=== PATIENT | female | born 1935 | race Caucasian/White ===

== ENCOUNTER → 2019-11-16 | Outpatient (CLI) | payer MEDICARE, OTHER ==
--- NOTE | 2019-11-16 11:02 | Diagnostic Imaging Report ---
INDICATION: Screening for osteoporosis COMPARISON: None FINDINGS: The bone density of hips and spine measured. There are no prior studies available for comparison. The T score for the spine is -1.5. This falls within the range of osteopenia. The total T score for the left hip is -2.5 and for the right hip -2.7. The T score for the left femoral neck is also -2.5. All these values indicate osteoporosis. The T score for the right femoral neck is -2.1. This also falls within the range of osteopenia.. AP Spine L1-L4: [BMD (g/cm2): 1.0018] [T-Score: -1.5] [Z-Score: -0.8] [BMD Previous: NA] [BMD % Change: NA] LT Hip Neck: [BMD (g/cm2): 0.687] [T-Score: -2.5] [Z-Score: 0.0] LT Hip Total: [BMD (g/cm2):0.692] [T-Score:-2.5] [Z-Score: 0.0] [BMD Previous: NA] [BMD % Change: NA] RT Hip Neck: [BMD (g/cm2):0.749] [T-Score:-2.1] [Z-Score:0.5] RT Hip Total: [BMD (g/cm2):0.664] [T-score:-2.7] [Z-Score:-0.3] [BMD Previous:NA] [BMD % Change:NA] *Indicates significant change from prior examination based on 95% confidence level. World Health Organization criteria for BMD interpretation classify patients as Normal (T-score at or above -1.0), Osteopenic (T-score between -1.0 and -2.5) or Osteoporotic (T-score at or below -2.5). LIMITATIONS AND MODIFICATION: None. FRACTURE RISK (FRAX SCORE): The ten year probability of (%): Major Osteoporotic Fracture: [17.0] Hip Fracture: [6.5] IMPRESSION: 1. There is osteopenia of the spine and the right femoral neck. 2. However there is osteoporosis of the hips and the left femoral neck. 3. See below National Osteoporosis Foundation guidelines on when to potentially initiate pharmacologic therapy. Based on the National Osteoporosis Foundation Guidelines, pharmacologic treatment should be initiated in any of the following, unless clinical conditions suggest otherwise: * Any patient with prior fragility fracture of the hip or vertebrae. A spine fracture indicates 5X risk for subsequent spine fracture and 2X risk for subsequent hip fracture. * Osteoporosis (T-score <-2.5). * Postmenopausal women and men age 50 and older with low bone mass/osteopenia (T-score between -1.0 and -2.5) by DXA and 10-year major osteoporotic fracture greater than 20% or a 10-year probability of hip fracture greater than 3%. These fracture risks are supplied above in the FRAX score, if applicable. * Clinician judgement and/or patient preferences may indicate treatment for people with 10-year fracture probabilities above or below these levels. Dictated by: Dictated on workstation # [id number]
== END ==
LOC: RAD 09:24
PROVIDERS: ATTEND Family Medicine
DX: Z13.820 Encounter for screening for osteoporosis (principal); M81.0 Age-related osteoporosis without current pathological fracture; M85.89 Other specified disorders of bone density and structure, multiple sites
CPT/HCPCS: 77080

== ENCOUNTER → 2019-11-29 | Outpatient (CLI) | payer MEDICARE, OTHER ==
[2019-11-29 10:16] LABS: ALANINE AMINOTRANSFERASE 14 U/L (0-55); ALBUMIN 4.1 GM/DL (3.2-4.5); ALKALINE PHOSPHATASE 60 U/L (40-136); BILIRUBIN,TOTAL 0.5 MG/DL (0.1-1.0); BUN/CREATININE RATIO 20; CARBON DIOXIDE 24 MMOL/L (21-32); CHLORIDE 108 MMOL/L (98-107); CHOLESTEROL 156 MG/DL (< 200); CREATININE SERUM 0.82 MG/DL (0.60-1.30); GFR ESTIMATED > 60; GLUCOSE 91 MG/DL (70-105); HDL CHOLESTEROL 55 MG/DL (40-60); POTASSIUM 4.1 MMOL/L (3.6-5.0); SODIUM 141 MMOL/L (135-145); TOTAL PROTEIN 7.4 GM/DL (6.4-8.2); TRIGLYCERIDES 78 MG/DL (<150); VLDL CHOLESTEROL 16 MG/DL (5-40)
[2019-11-29 10:18] LABS: BASOPHILS % (AUTO) 1 % (0-10); EOSINOPHILS # (AUTO) 0.1 10^3/uL (0.0-0.3); EOSINOPHILS % (AUTO) 1 % (0-10); HEMATOCRIT 40 % (35-52); HEMOGLOBIN 13.4 G/DL (11.5-16.0); LYMPHOCYTES # (AUTO) 1.2 X 10^3 (1.0-4.0); LYMPHOCYTES % (AUTO) 27 % (12-44); MEAN CORPUSCULAR HEMOGLOBIN 32 PG (25-34); MEAN CORPUSCULAR HGB CONC 33 G/DL (32-36); MEAN CORPUSCULAR VOLUME 96 FL (80-99); MEAN PLATELET VOLUME 9.3 FL (7.4-10.4); MONOCYTES # (AUTO) 0.2 X 10^3 (0.0-1.0); MONOCYTES % (AUTO) 5 % (0-12); NEUTROPHILS # (AUTO) 2.9 X 10^3 (1.8-7.8); NEUTROPHILS % (AUTO) 66 % (42-75); PLATELET COUNT 238 10^3/uL (130-400); WHITE BLOOD COUNT 4.4 10^3/uL (4.3-11.0)
== END ==
LOC: LAB 08:20
PROVIDERS: ATTEND Family Medicine
DX: Z00.00 Encounter for general adult medical examination without abnormal findings (principal); E55.9 Vitamin D deficiency, unspecified; M81.0 Age-related osteoporosis without current pathological fracture
CPT/HCPCS: 36415; 80053; 80061; 82306; 84443; 85025

== ENCOUNTER → 2020-09-11 | Outpatient (CLI) | payer MEDICARE, OTHER | LOC: CARD 11:33 | PROVIDERS: ATTEND Internal Medicine Cardiovascular Disease | DX: I25.5 Ischemic cardiomyopathy (principal) | CPT/HCPCS: 93306 ==

== ENCOUNTER 2020-10-09 18:27 | Emergency (ER) | payer MEDICARE, OTHER ==
[~2020-10-09] VITALS: Ht 162.6 cm; Wt 61.2 kg
--- NOTE | 2020-10-09 19:14 | ED GI ---
General Chief Complaint: Abdominal/GI Problems Stated Complaint: COVID POSITIVE - [facility] Nursing Triage Note: PT AMBULATE TO ROOM 09 WITH C/O NAUSEA. PT STATES THAT SHE CANNOT TAKE HER HOME MEDS BECAUSE OF THE NAUSEA. Sepsis Screen: No Definite Risk Source of Information: Patient Exam Limitations: No Limitations History of Present Illness Date Seen by Provider: Oct 09, 2020 Time Seen by Provider: 18:53 Initial Comments Patient presents ER by private conveyance from home with chief complaint of nausea without vomiting starting today. She started having a cough with some green sputum on Friday of last week, 5 days ago. On Friday, 3 days ago she was diagnosed at her pharmacy while picking up some medicines with COVID-19. She does not have any lung history other than she says decades ago she had a positive TB skin test but she is never had any problems since. She does not use any inhalers or oxygen. She does not feel short of breath just a cough and nausea. She is concerned because she has had difficulty keeping her sotalol and Eliquis down for her A. fib and she knows she does not want to miss any doses of that. She was able to get them both down but did not take her diuretic this morning. She has not been able to eat or drink very well either. Her primary care doctor is Dr. 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 She lives in [place]. Allergies and Home Medications Allergies Coded Allergies: clindamycin (Verified Allergy, Unknown, 10/09/20) Patient Home Medication List Home Medication List Reviewed: Yes Review of Systems Review of Systems Constitutional: No chills, No fever; malaise; No weakness EENTM: No Blurred Vision, No Double Vision Respiratory: Cough; Denies Shortness of Air Cardiovascular: Denies Chest Pain, Denies Edema Gastrointestinal: Denies Constipated, Denies Diarrhea; Nausea, Poor Fluid Intake; Denies Vomiting Genitourinary: Denies Discharge, Denies Drainage Musculoskeletal: No back pain, No gout, No joint pain Skin: No change in color, No dryness Psychiatric/Neurological: Denies Anxiety, Denies Depressed All Other Systems Reviewed Negative Unless Noted: Yes Past Ckdnhqj-Bseqgh-Gypmgl Hx Patient Social History Alcohol Use: Denies Use Smoking Status: Never a Smoker 2nd Hand Smoke Exposure: No Recent Infectious Disease Expo: No Recent Hopitalizations: Yes Seasonal Allergies Seasonal Allergies: Yes Past Medical History Surgeries: Yes (PROLAPSED UTERUS) Adenoidectomy, Hysterectomy, Tonsillectomy, Tubal Ligation Respiratory: Yes (HX OF TB) Cardiac: Yes Atrial Fibrillation, Cardiomyopathy, Coronary Artery Disease, Heart Attack Neurological: No Genitourinary: No Gastrointestinal: No Musculoskeletal: Yes Fractures Endocrine: No HEENT: No Loss of Vision: Denies Hearing Impairment: Denies Cancer: Yes Uterine Did You Recieve Any Treatments: Yes What Type of Treatment Did You: Surgical Intervention Psychosocial: No Integumentary: No Blood Disorders: No Physical Exam Vital Signs Vital Signs - First Documented 10/09/20 18:48 Temp 37.8 Pulse 68 Resp 17 B/P (MAP) 123/65 (84) O2 Delivery Room Air Capillary Refill : Less Than 3 Seconds Height/Weight/BMI Height: '" Weight: lbs. oz. kg; 23.00 BMI Method: General Appearance: WD/WN, no apparent distress HEENT: PERRL/EOMI, pharynx normal Neck: non-tender, full range of motion Respiratory: chest non-tender, lungs clear, normal breath sounds, no respiratory distress, no accessory muscle use Cardiovascular: normal peripheral pulses (70 bpm), no edema Gastrointestinal: normal bowel sounds, non tender, soft Extremities: normal range of motion, non-tender, normal capillary refill Neurologic/Psychiatric: alert, normal mood/affect, oriented x 3 Progress/Results/Core Measures Results/Orders Lab Results Laboratory Tests Test 10/09/20 19:09 Range/Units White Blood Count 6.2 4.3-11.0 10^3/uL Red Blood Count 4.18 3.80-5.11 10^6/uL Hemoglobin 12.6 11.5-16.0 g/dL Hematocrit 38 35-52 % Mean Corpuscular Volume 90 80-99 fL Mean Corpuscular Hemoglobin 30 25-34 pg Mean Corpuscular Hemoglobin Concent 34 32-36 g/dL Red Cell Distribution Width 16.5 H 10.0-14.5 % Platelet Count 296 130-400 10^3/uL Mean Platelet Volume 8.4 L 9.0-12.2 fL Immature Granulocyte % (Auto) 0 % Neutrophils (%) (Auto) 72 42-75 % Lymphocytes (%) (Auto) 18 12-44 % Monocytes (%) (Auto) 10 0-12 % Eosinophils (%) (Auto) 0 0-10 % Basophils (%) (Auto) 0 0-10 % Neutrophils # (Auto) 4.4 1.8-7.8 10^3/uL Lymphocytes # (Auto) 1.1 1.0-4.0 10^3/uL Monocytes # (Auto) 0.6 0.0-1.0 10^3/uL Eosinophils # (Auto) 0.0 0.0-0.3 10^3/uL Basophils # (Auto) 0.0 0.0-0.1 10^3/uL Immature Granulocyte # (Auto) 0.0 0.0-0.1 10^3/uL Sodium Level 128 L 135-145 MMOL/L Potassium Level 4.0 3.6-5.0 MMOL/L Chloride Level 96 L 98-107 MMOL/L Carbon Dioxide Level 20 L 21-32 MMOL/L Anion Gap 12 5-14 MMOL/L Blood Urea Nitrogen 14 7-18 MG/DL Creatinine 0.82 0.60-1.30 MG/DL Estimat Glomerular Filtration Rate > 60 BUN/Creatinine Ratio 17 Glucose Level 97 70-105 MG/DL Calcium Level 8.8 8.5-10.1 MG/DL Corrected Calcium 9.0 8.5-10.1 MG/DL Total Bilirubin 0.8 0.1-1.0 MG/DL Aspartate Amino Transf (AST/SGOT) 26 5-34 U/L Alanine Aminotransferase (ALT/SGPT) 11 0-55 U/L Alkaline Phosphatase 88 40-136 U/L Total Protein 7.7 6.4-8.2 GM/DL Albumin 3.8 3.2-4.5 GM/DL My Orders Orders - CASSY MAGUIRE Cbc With Automated Diff (10/09/20 19:01) Comprehensive Metabolic Panel (10/09/20 19:01) Ondansetron Injection (Zofran Injectio (10/09/20 19:15) Ed Iv/Invasive Line Start (10/09/20 19:02) Ns Iv 500 Ml (Sodium Chloride 0.9%) (10/09/20 19:15) Covid-19 External Lab Results (10/09/20 19:14) Medications Given in ED Current Medications Medications Dose Ordered Sig/Melanie Route Start Time Stop Time Status Last Admin Dose Admin Ondansetron HCl 4 mg ONCE ONCE IVP 10/09/20 19:15 10/09/20 19:16 DC 10/09/20 19:13 4 MG Sodium Chloride 500 ml @ 0 mls/hr Q0M ONCE IV 10/09/20 19:15 10/09/20 19:16 DC 10/09/20 19:13 999 MLS/HR Vital Signs/I&O 10/09/20 18:48 Temp 37.8 Pulse 68 Resp 17 B/P (MAP) 123/65 (84) O2 Delivery Room Air Blood Pressure Mean: 84 Progress Progress Note #1: Time: 19:13 Progress Note Plan to give her Zofran and a gentle 500 cc IV fluid bolus. We will check some basic labs and if everything looks okay we have discussed the combination mono clonal antibody for use under emergency use authorization by the FDA. We discussed the case with pharmacist and agree there is no contraindication to offering it to her given her age she would be in the top criteria for high risk. The patient has been given a handout and is reading it and will make an informed decision about the use of the antibody after we have her nausea treate d. Progress Note #2: Time: 19:49 Progress Note Her nausea is gone. We offered her an observation stay which she declined. She would like to do the monoclonal antibody after discussing risks, benefits and al ternatives. Departure Impression Primary Impression: COVID-19 Additional Impressions: Hyponatremia Nausea alone Disposition: 01 HOME, SELF-CARE Condition: Stable Departure-Patient Inst. Decision time for Depature: 19:49 Referrals: LUCY HERNANDEZ MD (PCP/Family) Primary Care Physician Patient Instructions: COVID-19 Overview, Bamlanivimab and Etesevimab FDA Fact Sheet Add. Discharge Instructions: Expect a phone call from the hospital tomorrow to set up your infusion on Friday. If you do not hear from them by Friday morning then call the hospital at to follow-up. Asked to speak to the pharmacist. Drink plenty of fluids. Zofran 1 tablet every 6 hours under the tongue as necessary for nausea or vomiting. Continue to take your other medications. Return to the ER if you are having new or worrisome symptoms or are unable to control your nausea. All discharge instructions reviewed with patient and/or family. Voiced understanding. Scripts Ondansetron (Ondansetron Odt) 4 Mg Tab.rapdis 4 MG PO Q6H PRN for NAUSEA/VOMITING, #12 TAB 0 Refills Prov: CASSY MAGUIRE 10/09/20 Copy Copies To 1: LUCY HERNANDEZ MD, TITUS J Oct 09, 2020 19:14
[2020-10-09] MEDS ORDERED: NS IV 500 ML 500 ML IV ONE (19:15)
[2020-10-09] MEDS ORDERED: ONDANSETRON 4 MG/2 ML (SDV) Z0FRAN IVP ONE (19:15)
[2020-10-09 19:17] LABS: BASOPHILS % (AUTO) 0 % (0-10); EOSINOPHILS % (AUTO) 0 % (0-10); HEMATOCRIT 38 % (35-52); HEMOGLOBIN 12.6 g/dL (11.5-16.0); LYMPHOCYTES # (AUTO) 1.1 10^3/uL (1.0-4.0); LYMPHOCYTES % (AUTO) 18 % (12-44); MEAN CORPUSCULAR HEMOGLOBIN 30 pg (25-34); MEAN CORPUSCULAR HGB CONC 34 g/dL (32-36); MEAN CORPUSCULAR VOLUME 90 fL (80-99); MEAN PLATELET VOLUME 8.4 fL (9.0-12.2); MONOCYTES # (AUTO) 0.6 10^3/uL (0.0-1.0); MONOCYTES % (AUTO) 10 % (0-12); NEUTROPHILS # (AUTO) 4.4 10^3/uL (1.8-7.8); NEUTROPHILS % (AUTO) 72 % (42-75); PLATELET COUNT 296 10^3/uL (130-400); WHITE BLOOD COUNT 6.2 10^3/uL (4.3-11.0)
[2020-10-09 19:35] LABS: ALANINE AMINOTRANSFERASE 11 U/L (0-55); ALBUMIN 3.8 GM/DL (3.2-4.5); ALKALINE PHOSPHATASE 88 U/L (40-136); BILIRUBIN,TOTAL 0.8 MG/DL (0.1-1.0); BUN/CREATININE RATIO 17; CALCIUM 8.8 MG/DL (8.5-10.1); CARBON DIOXIDE 20 MMOL/L (21-32); CHLORIDE 96 MMOL/L (98-107); CREATININE SERUM 0.82 MG/DL (0.60-1.30); GFR ESTIMATED > 60; GLUCOSE 97 MG/DL (70-105); SODIUM 128 MMOL/L (135-145); TOTAL PROTEIN 7.7 GM/DL (6.4-8.2)
[2020-10-09] MEDS ORDERED: ONDA4TAB11 PO (20:00)
[2020-10-09] MEDS ORDERED: RX-ONDANSETRON 4 MG ODT (ZOFRAN) PPK #4 PO STA (20:01)
[2020-10-09 20:15] VITALS: BP 119/61
== END 2020-10-09 20:15 | disposition home or self-care (01) ==
LOC: EDUNIT# 18:27 → ER 18:32
DX: U07.1 COVID-19 (principal); E87.1 Hypo-osmolality and hyponatremia; R11.0 Nausea; I25.2 Old myocardial infarction; Z88.1 Allergy status to other antibiotic agents
CPT/HCPCS: 36415; 80053; 85025

== ENCOUNTER → 2020-10-11 | Outpatient (CLI) | payer MEDICARE, OTHER ==
[~2020-10-11] VITALS: Ht 162.6 cm; Wt 51.7 kg
[~2020-10-11] MED LIST: CASIRIVIMAB/IMDEVIMAB 2,400 MG/NS 250 ML IV ONE; EPINEPHrine INJECTION 1 MG/ML AMP IM PRN; ONDA4TAB11 PO; diphenhydrAMINE 50 MG/ML INJ (BENADRYL) IV PRN
[2020-10-11 13:45] VITALS: BP 120/51
[2020-10-11 15:17] VITALS: BP 118/60
== END ==
LOC: INFUSION 13:53
PROVIDERS: ATTEND Family Medicine
DX: Z23 Encounter for immunization (principal)

== ENCOUNTER → 2021-07-26 | Outpatient (CLI) | payer MEDICARE, OTHER ==
[~2021-07-26] MED LIST changes: -CASIRIVIMAB/IMDEVIMAB 2,400 MG/NS 250 ML IV ONE; -EPINEPHrine INJECTION 1 MG/ML AMP IM PRN; +REGADENOSON 0.4 MG/5 ML SYR (LEXISCAN) IV ONE; -diphenhydrAMINE 50 MG/ML INJ (BENADRYL) IV PRN
--- NOTE | 2021-07-26 08:02 | Diagnostic Imaging Report ---
Indication: Coronary artery disease PA and lateral views of the chest are obtained. No previous studies available at this time for comparison. Heart size and pulmonary vascularity are within normal limits. There is mild bilateral air trapping indicating background emphysema. No pneumothorax, consolidation or significant pleural fluid is identified. There appear to be old upper right rib fracture deformities. IMPRESSION: Background emphysema without acute abnormality identified. Dictated by: Dictated on workstation # [id number]
[2021-07-26] MEDS: CATHETER FLUSH 10 ML SYR IV PRN ×2 (08:08→09:25)
[2021-07-26 09:09] VITALS: BP 134/85
[2021-07-26 09:23] VITALS: BP 132/67
--- NOTE | 2021-07-27 10:29 | NUCLEAR STRESS TEST ---
REGADENOSON NUCLEAR STRESS Date of procedure: 07/26/2021. Primary care provider: Reyna Hernandez MD Admitting physician: Gumaro Moran Jr., MD. INDICATION: Coronary artery disease. BASELINE ELECTROCARDIOGRAM: Sinus bradycardia at 58 bpm with possible old septal myocardial infarction with inferior and anterolateral ST-T wave changes, consider ischemia. STRESS TEST PROCEDURE: This was initially intended to be a treadmill nuclear stress test but the patient could not walk on the treadmill and this was converted over to a regadenoson nuclear stress test. The patient was administered 0.4 mg of intravenous Regadenoson. The resting heart rate was 58 bpm and the peak heart rate was 99 bpm. The resting blood pressure was 132/67 mmHg and the minimum blood pressure was 113/66 mmHg. This represents a normal heart rate and a normal blood pressure response to Regadenoson. The test was stopped due to the protocol. There was no chest discomfort during the test. There were no arrhythmias during the test. The stress electrocardiogram was indeterminate due to the baseline abnormalities. NUCLEAR PROCEDURE: The patient was administered 7.8 mCi of intravenous technetium 99m Tetrofosmin at rest for the rest images. The patient was subsequently administered 22.9 mCi of intravenous technetium 99m Tetrofosmin at peak stress for the stress images. Following an appropriate wait after each injection, imaging was obtained. The images were subsequently processed and reformatted in the usual views. Gated imaging was obtained. The image quality was adequate with a moderate degree of gastrointestinal and motion artifact. CT attenuation correction was used as a adjunct to standard imaging. Both the corrected and uncorrected images were reviewed for interpretation. NUCLEAR RESULTS: There was a large, severe intensity, fixed mid to distal anterior and apical defect with no evidence of inducible ischemia. There was normal left ventricular chamber size with an end-diastolic volume of 60 mL and an end-systolic volume of 12 mL. There was no evidence of transient ischemic dilatation. The TID ratio was 1.1. There was mid to distal anterior and apical hypokinesis with an overall calculated ejection fraction of 80%. IMPRESSION: 1. Normal heart rate and blood pressure response to regadenoson. 2. There was no chest discomfort or arrhythmias during the test. 3. The stress electrocardiogram was indeterminate due to the baseline abnormalities. 4. There was a large, severe intensity, fixed mid to distal anterior and apical defect with no evidence of inducible ischemia. 5. There was mid to distal anterior and hypokinesis with an overall calculated ejection fraction of 80%. 6. This is an abnormal result representing a moderate risk for possible future coronary ischemic events due to the size of the defect although there is no evidence of ischemia. Certain portions of this document may have been dictated utilizing voice recognition technology. Inherent to this technology, typographical and grammatical errors may exist. As much as I am diligent to identify and correct these mistakes, some errors may remain in the document. GUMARO MORAN JR, MD Jul 27, 2021 10:29
== END ==
LOC: CARD 08:00
PROVIDERS: ATTEND Internal Medicine Cardiovascular Disease
DX: I25.10 Atherosclerotic heart disease of native coronary artery without angina pectoris (principal); J43.9 Emphysema, unspecified
CPT/HCPCS: 71046; 78452; 93017; A9502

== ENCOUNTER → 2021-08-15 | Outpatient (CLI) | payer MEDICARE, OTHER ==
[~2021-08-15] MED LIST changes: -REGADENOSON 0.4 MG/5 ML SYR (LEXISCAN) IV ONE
[2021-08-15 10:44] LABS: POTASSIUM 4.3 MMOL/L (3.6-5.0)
[2021-08-15 10:45] LABS: CALCIUM 9.7 MG/DL (8.5-10.1)
[2021-08-15 10:50] LABS: CREATININE SERUM 0.79 MG/DL (0.60-1.30)
== END ==
LOC: LAB 10:01
PROVIDERS: ATTEND Internal Medicine Cardiovascular Disease
DX: I25.10 Atherosclerotic heart disease of native coronary artery without angina pectoris (principal); I42.9 Cardiomyopathy, unspecified; I48.0 Paroxysmal atrial fibrillation; I35.1 Nonrheumatic aortic (valve) insufficiency; I10 Essential (primary) hypertension; E78.2 Mixed hyperlipidemia
CPT/HCPCS: 36415; 80048

== ENCOUNTER 2021-11-08 09:30 | Day surgery (SDC) | payer MEDICARE, OTHER ==
[~2021-11-08] VITALS: Ht 162.6 cm; Wt 50.6 kg
[2021-11-08] VITALS (9 sets, daily range): BP systolic 83–127; BP diastolic 30–62
[~2021-11-08 09:30] MED LIST changes: +APIX2.5T PO; +ASPIRIN 81 MG CHEW (CHILDREN'S ASA) ONE; +ASPIRIN 81 MG CHEW (CHILDREN'S ASA) PO ONE; +BONE SUPPORT PO; +CATHETER FLUSH 10 ML SYR IV PRN; +HEParin (CATH LAB) 2,000 ML IV ONE; +LIDOCAINE 1% INJ 20 ML VIAL ONE; +NITR0.4T39 SL; +NS IV 1000 ML 1,000 ML IV ONE; +PEDI18TA7 PO; +SOTA80TA62 PO; +SPIR25TA5 PO
[2021-11-08] MEDS ORDERED: VERAPAMIL 5 MG/2 ML (CALAN) VIAL IV ONE (09:37)
[2021-11-08] MEDS ORDERED: fentaNYL INJ 100 MCG/2 ML AMP ONE (09:38)
[2021-11-08] MEDS ORDERED: HEParin 1000 UNIT/ML (10ML VIAL) FOR BOLUS ONE (09:38)
[2021-11-08] MEDS ORDERED: NITRO DRIP 25000 MCG/D5W 250 ML IV ONE (09:38)
[2021-11-08] MEDS ORDERED: MIDAZOLAM 5 MG/5 ML (VERSED) VIAL ONE (09:38)
--- NOTE | 2021-11-08 10:02 | Pre-Op Note & Conscious Sedat ---
Pre-Operative Progress Note H&P Reviewed The H&P was reviewed, patient examined and no changes noted. Date H&P Reviewed: November 08, 2021 Time H&P Reviewed: 09:59 Pre-Op Diagnosis: Coronary artery disease with angina pectoris. She does not have any history of heart failure. She underwent a stress test on 07/26/2021 that was abnormal and considered moderate risk for possible future coronary ischemic events. Given her current clinical status, she is considered moderately frail. Conscious Sedation Pre-Proced ASA Score 2 For ASA 3 and 4: Consider anesthesia and medical clearance. Also, for patients with a history of failed moderate sedation consider anesthesia. Airway Lungs Heart ASA score ASA 1: a normal healthy patient ASA 2: a patient with a mild systemic disease (mid diabetes, controlled hypertension, obesity ASA 3: a patient with a severe systemic disease that limits activity (angina, COPD, prior Myocardial infarction) ASA 4: a patient with an incapacitating disease that is a constant threat to life (CHF, renal failure) ASA 5: a moribund patient not expected to survive 24 hrs. (ruptured aneurysm) ASA 6: a declared brain- patient whose organs are being harvested. For emergent operations, add the letter E after the classification Mallampati Classification Grade 2 Sedation Plan Analgesia, Amnesia, Plan communicated to team members, Discussed options with patient/fam, Discussed risks with patient/fam The patient is an appropriate candidate to undergo the planned procedure, sedation, and anesthesia. The patient immediately re-assessed prior to indication. BHAVIN HIGGINS JR, MD November 08, 2021 10:02
--- NOTE | 2021-11-08 11:12 | Cardiac Cath Report ---
CARDIAC CATHETERIZATION DATE OF PROCEDURE: 11/08/2021 INDICATION: Coronary artery disease with angina pectoris. 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 No stent was placed. At that time there was also thrombus noted in the left circumflex and right coronary arteries and the thought was that she may have had coronary emboli from atrial fibrillation. She has been treated with oral anticoagulation since that time. Then she recently developed recurrent chest discomfort and was seen at an outside emergency room. She had borderline elevated troponin levels but her symptoms had resolved so she was discharged home. Because of the somewhat unstable nature of her symptoms, I recommended further evaluation with a cardiac catheterization. PROCEDURES PERFORMED: 1. Left heart catheterization with hemodynamic measurements. 2. Diagnostic [place] coronary angiography. PROCEDURE DESCRIPTION: After informed consent and in the fasting state, left heart catheterization was performed through the right radial artery utilizing a 6 [place] system by percutaneous approach using ultrasound guidance. A 5 [place] JR 4 catheter and a 5 [place] JL 3.5 catheter were utilized for the diagnostic portion of the procedure. All catheters were exchanged over a guidewire. Following the procedure, a vascular band was applied to the radial artery access site and the sheath was removed with good hemostasis. RESULTS: HEMODYNAMICS: The aortic pressure was 99/52 mmHg. The left ventricular pressure was 100/0 mmHg with a left ventricular end-diastolic pressure of 12 mmHg. There was no significant pressure gradient upon pullback across the aortic valve. CORONARY ANGIOGRAPHY: Left main coronary artery: This had a very upward takeoff but was free of significant disease. Left anterior descending coronary artery: Free of significant disease. Left circumflex coronary artery: Free of significant disease. Right coronary artery: Dominant with a very upward takeoff and a valentino's crook configuration but free of significant disease. IMPRESSION: 1. Mildly elevated left ventricular end-diastolic pressure. 2. Angiographically normal-appearing coronary arteries and a right dominant system. 3. The patient is known to have normal left ventricular systolic function with a calculated ejection fraction of 80% by nuclear stress test that was performed on 07/26/2021. 3. I would question whether or not the patient may have had another small coronary embolic event that was enough to cause her stress test to be abnormal but now she has no evidence of coronary thrombus or coronary atherosclerosis. Certain portions of this document may have been dictated utilizing voice recognition technology. Inherent to this technology, typographical and grammatical errors may exist. As much as I am diligent to identify and correct these mistakes, some errors may remain in the document. BHAVIN HIGGINS JR, MD November 08, 2021 11:12
[2021-11-08] MEDS ORDERED: NS IV 1000 ML 1,000 ML IV SCH (11:15)
== END 2021-11-08 14:15 | disposition home or self-care (01) ==
LOC: CATH 09:30
PROVIDERS: ATTEND Internal Medicine Cardiovascular Disease
DX: I25.119 Atherosclerotic heart disease of native coronary artery with unspecified angina pectoris (principal); I42.9 Cardiomyopathy, unspecified; I48.0 Paroxysmal atrial fibrillation; I35.1 Nonrheumatic aortic (valve) insufficiency; I10 Essential (primary) hypertension; E78.2 Mixed hyperlipidemia; R54 Age-related physical debility; Z87.891 Personal history of nicotine dependence; Z79.01 Long term (current) use of anticoagulants; Z79.899 Other long term (current) drug therapy; Z71.89 Other specified counseling
CPT/HCPCS: 87081; 93458; C1894

== ENCOUNTER 2021-12-20 14:46 | Emergency (ER) | payer MEDICARE, OTHER ==
[~2021-12-20] VITALS: Ht 167.7 cm; Wt 50.3 kg
[~2021-12-20 14:46] MED LIST changes: -ASPIRIN 81 MG CHEW (CHILDREN'S ASA) ONE; -ASPIRIN 81 MG CHEW (CHILDREN'S ASA) PO ONE; -CATHETER FLUSH 10 ML SYR IV PRN; -HEParin (CATH LAB) 2,000 ML IV ONE; -LIDOCAINE 1% INJ 20 ML VIAL ONE; -NS IV 1000 ML 1,000 ML IV ONE
--- NOTE | 2021-12-20 15:26 | Diagnostic Imaging Report ---
PROCEDURE: CT head without contrast. TECHNIQUE: Multiple contiguous axial images were obtained through the brain without the use of intravenous contrast. Auto Exposure Controls were utilized during the CT exam to meet ALARA standards for radiation dose reduction. INDICATION: Head injury and pain. Anticoagulation therapy. COMPARISON: None. FINDINGS: Moderate to advanced generalized parenchymal volume loss and leukoaraiosis. No CT evidence of an acute territorial infarction. Intracranial vascular calcifications. No intracranial hemorrhage, mass effect, hydrocephalus or extra-axial fluid collections. No acute osseous findings. Mucosal thickening and fluid in the ethmoid and sphenoid sinuses. The mastoids are clear. IMPRESSION: No acute intracranial CT findings. Dictated by: Dictated on workstation # [id number]
--- NOTE | 2021-12-20 15:35 | ED Head Injury ---
General Chief Complaint: Head/Cervical Problems Stated Complaint: HIT HEAD Nursing Triage Note: PT AMBULATE TO ROOM 03 WITH C/O HITTING HEAD ON KITCHEN CABINET. PT STATES SHE WAS BENDING OVER AND HIT HER HEAD. PT DENIES N/V AND LOC. PT STATES HER LEFT EYE IS NOT DILATING LIKE HER RIGHT EYE. (SRI RODRIGUEZ) History of Present Illness Date Seen by Provider: Dec 20, 2021 Time Seen by Provider: 14:53 Initial Comments 86-year-old female presents after hitting her head on an open kitchen counter when she bent down and stood back up. She is on Eliquis and is concerned with the bleeding potential. She reports no direct visual changes, no seizure activity, no nausea or vomiting, and no headache. She said no previous head injuries. She did note that her right pupil seemed slightly enlarged compared to the left. She has had cataract surgery in the past. No swelling, ecchymosis or bleeding at site of injury. Occurred: this afternoon Severity: mild Location: frontal Method of Injury: direct blow Loss of Consciousness: no loss of consciousness Associated Systoms: Denies Symptoms (SRI RODRIGUEZ) Allergies and Home Medications Allergies Coded Allergies: amiodarone (Verified Allergy, Unknown, 11/08/21) cefadroxil (Verified Allergy, Unknown, 11/08/21) clindamycin (Verified Allergy, Unknown, 10/09/20) diphenhydramine (Verified Allergy, Unknown, 11/08/21) meperidine (Verified Allergy, Unknown, 11/08/21) morphine (Verified Allergy, Unknown, 11/08/21) Patient Home Medication List Home Medication List Reviewed: Yes (SRI RODRIGUEZ) Apixaban (Eliquis) 2.5 Mg Tablet, 2.5 MG PO 0700,1900, (Reported) Entered as Reported by: ALETHEA ARMANDO on 11/08/21918 Nitroglycerin (Nitroglycerin) 0.4 Mg Tab.subl, 0.4 MG SL UD PRN for CHEST PAIN, (Reported) Entered as Reported by: ALETHEA ARMANDO on 11/08/21918 Pediatric Multivit No.203/Iron (Flintstones with Iron Tab Chew) 18 Mg Iron Tab.chew, 18 MG PO DAILY, (Reported) Entered as Reported by: ALETHEA ARMANDO on 11/08/21918 Sotalol HCl (Sotalol) 80 Mg Tablet, 80 MG PO 0600,1800, (Reported) Entered as Reported by: ALETHEA ARMANDO on 11/08/21918 Spironolactone (Spironolactone) 25 Mg Tablet, 12.5 MG PO DAILY, (Reported) Entered as Reported by: ALETHEA ARMANDO on 11/08/21918 [Bone Support] , 1 CAP PO BID, (Reported) Entered as Reported by: ALETHEA ARMANDO on 11/08/21918 Review of Systems Review of Systems Constitutional: no symptoms reported, see HPI Eyes: No Symptoms Reported, See HPI Ears, Nose, Mouth, Throat: no symptoms reported, see HPI Respiratory: no symptoms reported, see HPI Cardiovascular: no symptoms reported, see HPI Gastrointestinal: no symptoms reported, see HPI Genitourinary: no symptoms reported, see HPI Musculoskeletal: no symptoms reported, see HPI Skin: no symptoms reported, see HPI (SRI RODRIGUEZ) All Other Systems Reviewed Negative Unless Noted: Yes (SRI RODRIGUEZ) Past Xyxddbu-Ukyfqd-Dqkkxe Hx Patient Social History Tobacco Use?: No Smoking Status: Never a Smoker Smokeless Tobacco Frequency: Never a User Use of E-Cig and/or Vaping dev: No Use of E-Cig and/or Vaping [place]: Never a User Substance use?: No Alcohol Use?: No Pt feels they are or have been: No (SRI RODRIGUEZ) Seasonal Allergies Seasonal Allergies: Yes (SRI RODRIGUEZ) Past Medical History Surgeries: Yes (PROLAPSED UTERUS) Adenoidectomy, Hysterectomy, Tonsillectomy, Tubal Ligation Respiratory: Yes (HX OF TB) Cardiac: Yes Atrial Fibrillation, Cardiomyopathy, Coronary Artery Disease, Heart Attack Neurological: No Genitourinary: No Gastrointestinal: No Musculoskeletal: Yes Fractures Endocrine: No HEENT: No Loss of Vision: Denies Hearing Impairment: Denies Cancer: Yes Uterine Did You Recieve Any Treatments: Yes What Type of Treatment Did You: Surgical Intervention Psychosocial: No Integumentary: No Blood Disorders: No (SRI RODRIGUEZ) Family Medical History Reviewed Nursing Family Hx (SRI RODRIGUEZ) Physical Exam Vital Signs Vital Signs - First Documented 12/20/21 12/20/21 14:53 15:46 Temp 35.9 Pulse 60 Resp 14 B/P (MAP) 132/72 (92) Pulse Ox 98 O2 Delivery Room Air (SHY HERNANDEZ MD) Vital Signs Capillary Refill : Less Than 3 Seconds (SRI RODRIGUEZ) Height, Weight, BMI Height: '" Weight: lbs. oz. kg; 17.00 BMI Method: General Appearance: WD/WN, no apparent distress HEENT: PERRL/EOMI, normal ENT inspection, TMs normal, pharynx normal, other (Tenderness to palpation right frontal. No swelling or ecchymosis) Neck: non-tender, full range of motion, supple, normal inspection Cardiovascular: normal peripheral pulses, regular rate, rhythm Respiratory: chest non-tender, lungs clear, normal breath sounds Gastrointestinal: normal bowel sounds, non tender, soft Extremities: normal range of motion, non-tender, normal inspection, normal capillary refill, other (Steady gait) Psychiatric: alert, oriented x 3 Crainal Nerves: normal hearing, normal speech, PERRL Coordination/Gait: normal finger to nose, normal gait Skin: normal color, warm/dry (SRI RODRIGUEZ) Progress/Results/Core Measures Results/Orders Vital Signs/I&O 12/20/21 12/20/21 14:53 15:46 Temp 35.9 Pulse 60 67 Resp 14 16 B/P (MAP) 132/72 (92) 127/66 Pulse Ox 98 O2 Delivery Room Air Room Air (SHY HERNANDEZ MD) Blood Pressure Mean: 92 Diagnostic Imaging Diagonstic Imaging: CT Plain Films/CT/US/NM/MRI: head Comments NAME: JANIS RIVERA [facility] REC#: [id number] PT STATUS: REG ER : 1935 PHYSICIAN: SRI RODRIGUEZ ADMIT DATE: 12/20/21/ER Draft Date of Exam:12/20/21 CT HEAD WO PROCEDURE: CT head without contrast. TECHNIQUE: Multiple contiguous axial images were obtained through the brain without the use of intravenous contrast. Auto Exposure Controls were utilized during the CT exam to meet ALARA standards for radiation dose reduction. INDICATION: Head injury and pain. Anticoagulation therapy. COMPARISON: None. FINDINGS: Moderate to advanced generalized parenchymal volume loss and leukoaraiosis. No CT evidence of an acute territorial infarction. Intracranial vascular calcifications. No intracranial hemorrhage, mass effect, hydrocephalus or extra-axial fluid collections. No acute osseous findings. Mucosal thickening and fluid in the ethmoid and sphenoid sinuses. The mastoids are clear. IMPRESSION: No acute intracranial CT findings. Dictated on workstation # [id number] Dict: 12/20/21 1521 Trans: 12/20/21 1525 [id number] Interpreted by: BO HASTINGS MD Electronically signed by: (SRI RODRIGUEZ) Departure Impression Primary Impression: Head contusion Qualified Codes: S00.03XA - Contusion of scalp, initial encounter Disposition: HOME, SELF-CARE Condition: Improved Departure-Patient Inst. Decision time for Depature: 15:25 (SRI RODRIGUEZ) Referrals: LUCY MORRISON MD (PCP/Family) Primary Care Physician Patient Instructions: Minor Head Injury (DC) Add. Discharge Instructions: Continue to monitor symptoms as needed. Follow-up with your primary care provider if symptoms are not improving or worsen. No aggressive physical activity for the next week. Keep your feet on the ground at all times. Return to the emergency department for new, urgent healthcare needs. All discharge instructions reviewed with patient and/or family. Voiced understanding. ATTENDING PHYSICIAN NOTE: I was physically present as attending physician in the emergency department during the care of this patient, but I was not directly involved in the decision making or delivery of care for this patient. (SHY HERNANDEZ MD) Copy Copies To 1: LUCY MORRISON MD, AMY ARNP Dec 20, 2021 15:35 SHY HERNANDEZ MD Dec 20, 2021 19:08
[2021-12-20 15:46] VITALS: BP 127/66
== END 2021-12-20 15:46 | disposition home or self-care (01) ==
LOC: EDUNIT# 14:46 → ER 14:47
DX: S00.03XA Contusion of scalp, initial encounter (principal); Z28.310 Unvaccinated for COVID-19; W22.8XXA Striking against or struck by other objects, initial encounter; Y92.000 Kitchen of unspecified non-institutional (private) residence as the place of occurrence of the external cause
CPT/HCPCS: 70450

== ENCOUNTER → 2021-12-27 | Outpatient (CLI) | payer MEDICARE, OTHER ==
--- NOTE | 2021-12-27 14:54 | Diagnostic Imaging Report ---
PROCEDURE: MR imaging of the brain without contrast. TECHNIQUE: Multiplanar, multisequence MR imaging of the brain was performed without contrast. INDICATION: Recent head injury and unsteadiness. COMPARISON: No prior MRI brain studies are available for comparison. FINDINGS: Ventricles and sulci are prominent, consistent with the patient's age. Moderate periventricular and subcortical white matter changes are noted, consistent with chronic microvascular ischemia. No acute intra-axial or extra-axial hemorrhage is detected. There are punctate areas of diffusion restriction in the right occipital lobe, suggestive of microinfarcts. No other areas of diffusion restriction are identified. The normal expected flow-voids within the carotid siphons are seen. The corpus callosum is unremarkable. The sella and parasellar structures are unremarkable. IMPRESSION: Cerebral atrophy with extensive changes of chronic microvascular ischemia. There are punctate regions of diffusion restriction in the right occipital lobe, suggestive of acute/subacute microinfarcts. No large territory infarct or evidence of acute intracranial hemorrhage is detected. Dictated by: Dictated on workstation # [id number]
--- NOTE | 2021-12-27 16:42 | Diagnostic Imaging Report ---
PROCEDURE: US carotid duplex, bilateral. TECHNIQUE: Multiple real-time grayscale images were obtained over the carotid arteries in various projections, bilaterally. Additional spectral analysis and color Doppler duplex images were also obtained. INDICATION: Transient ischemic attack. FINDINGS: Mild plaquing is noted in both carotid systems. Velocities are normal bilaterally. No velocity elevation or stenosis is detected. Both vertebral arteries show antegrade flow. IMPRESSION: No evidence of a hemodynamically significant stenosis. Parameters based on the consensus panel Galindo-Scale and Doppler ultrasound criteria published April 2003, Radiology, Volume 229. DOPPLER (peak systolic velocity M/S Right Left CCA 0.65 0.62 ICA Proximal 0.59 0.44 ICA Mid 0.77 1.13 ICA Distal 0.80 0.94 RATIO 1.23 1.58 ECA 0.55 0.45 VERT 0.33 0.44 Dictated by: Dictated on workstation # [id number]
== END ==
LOC: RAD 12:05
DX: G45.9 Transient cerebral ischemic attack, unspecified (principal); G31.9 Degenerative disease of nervous system, unspecified
CPT/HCPCS: 70551; 93880

== ENCOUNTER → 2021-12-31 | Outpatient (CLI) | payer MEDICARE, OTHER | LOC: CARD 14:30 | PROVIDERS: ATTEND Internal Medicine Cardiovascular Disease | DX: I08.3 Combined rheumatic disorders of mitral, aortic and tricuspid valves (principal); I48.0 Paroxysmal atrial fibrillation | CPT/HCPCS: 93306 ==

== ENCOUNTER 2022-01-12 23:06 | Observation (INO) | payer MEDICARE, OTHER ==
[~2022-01-12] VITALS: Ht 165.1 cm; Wt 51.2 kg
--- NOTE | 2022-01-12 23:14 | ED Chest Pain ---
General Chief Complaint: Chest Pain Stated Complaint: CP,UNSTEADY WALKING,TOOK NITRO Source: patient History of Present Illness Date Seen by Provider: Jan 12, 2022 Time Seen by Provider: 23:12 Initial Comments PT ARRIVES VIA POV FROM HOME C/O CHEST PAIN THAT BEGAN AROUND 0 TONIGHT PAIN IS UNDER LEFT BREAST, OCCASIONALLY MOVES ACROSS HER CHEST STATES PAIN WAS AN "8-9" BUT "NOW IT'S JUST A LITTLE TUG NOW AND THEN IF I MOVE JUST RIGHT" --IS NOT HAVING PAIN NOW STATES SHE WAS DIZZY, BUT NOT NOW NO PALPITATIONS NO SYNCOPE NO SHORTNESS OF BREATH NO NAUSEA/VOMITING NO SWELLING IN LEGS/FEET OR PAIN IN CALVES NO FEVER OR RECENT ILLNESS PT IS CURRENTLY ON ELIQUIS AND SOTALOL FOR ATRIAL FIBRILLATION WAS TAKING ALDACTONE FOR HTN, BUT SHE STOPPED TAKING IT ABOUT 2 WEEKS AGO--STATES "I WAS STUMBLING ALL OVER" --THAT HAS IMPROVED SINCE STOPPING THE MEDICATION, AND HAS SEEN HER PRINCIPAL TECHNICAL WRITER IN THE LAST 2 WEEKS AND HE AGREED WITH HOLDING THE MEDICATION FOR NOW. PT STATES SHE HAD A PRIOR ME IN 1999--NO CARDIAC CATH OR STENTS. STATES "THEY JUST GOT THE CLOT OUT" PT HAD A NORMAL CARDIAC CATH BY DR. HIGGINS 11/08/21 PCP: DR. MORRISON PRINCIPAL TECHNICAL WRITER: DR. HIGGINS. Allergies and Home Medications Allergies Coded Allergies: amiodarone (Verified Allergy, Unknown, 11/08/21) cefadroxil (Verified Allergy, Unknown, 11/08/21) clindamycin (Verified Allergy, Unknown, 10/09/20) diphenhydramine (Verified Allergy, Unknown, 11/08/21) meperidine (Verified Allergy, Unknown, 11/08/21) morphine (Verified Allergy, Unknown, 11/08/21) Patient Home Medication List Apixaban (Eliquis) 2.5 Mg Tablet, 2.5 MG PO 0700,1900, (Reported) Entered as Reported by: ALETHEA ARMANDO on 11/08/21918 Last Action: Last Taken Edited Nitroglycerin (Nitroglycerin) 0.4 Mg Tab.subl, 0.4 MG SL UD PRN for CHEST PAIN, (Reported) Entered as Reported by: ALETHEA ARMANDO on 11/08/21918 Last Action: Last Taken Edited Pediatric Multivit No.203/Iron (Flintstones with Iron Tab Chew) 18 Mg Iron Tab.chew, 18 MG PO DAILY, (Reported) Entered as Reported by: ALETHEA ARMANDO on 11/08/21918 Last Action: Last Taken Edited Sotalol HCl (Sotalol) 80 Mg Tablet, 80 MG PO 0600,1800, (Reported) Entered as Reported by: ALETHEA ARMANDO on 11/08/21918 Last Action: Last Taken Edited [Bone Support] , 1 CAP PO BID, (Reported) Entered as Reported by: ALETHEA ARMANDO on 11/08/21918 Last Action: Last Taken Edited Discontinued Medications Spironolactone (Spironolactone) 25 Mg Tablet, 12.5 MG PO DAILY, (Reported) Discontinued Reason: No Longer Taking Entered as Reported by: ALETHEA ARMANDO on 11/08/21918 Last Action: Discontinued Review of Systems Review of Systems Constitutional: see HPI, dizziness, weakness EENTM: No Symptoms Reported Respiratory: No Symptoms Reported; Denies Cough, Denies Orthopnea, Denies Shortness of Air Cardiovascular: See HPI, Chest Pain; Denies Edema, Denies Irregular Heart Rate; Lightheadedness; Denies Palpitations, Denies Syncope Gastrointestinal: No Symptoms Reported; Denies Abdominal Pain, Denies Nausea, Denies Vomiting Genitourinary: No Symptoms Reported Musculoskeletal: no symptoms reported Skin: no symptoms reported Psychiatric/Neurological: No Symptoms Reported Endocrine: No Symptoms Reported Hematologic/Lymphatic: No Symptoms Reported Past Gmuyhmm-Kuosml-Plfkok Hx Patient Social History Tobacco Use?: No Substance use?: No Alcohol Use?: No Seasonal Allergies Seasonal Allergies: Yes Past Medical History Surgeries: Yes (PROLAPSED UTERUS; CARDIAC CATH 11/08/21-NORMAL: CATARACTS) Adenoidectomy, Cardiac, Eye Surgery, Hysterectomy, Tonsillectomy, Tubal Ligation Respiratory: Yes (HX OF TB) Tuberculosis Cardiac: Yes Atrial Fibrillation, Cardiomyopathy, Coronary Artery Disease, Heart Attack, Hypertension Neurological: 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 HIGGINS: IMPRESSION: 1. Mildly elevated left ventricular end-diastolic pressure. 2. Angiographically normal-appearing coronary arteries and a right dominant system. 3. The patient is known to have normal left ventricular systolic function with a calculated ejection fraction of 80% by nuclear stress test that was performed on 07/26/2021. 3. I would question whether or not the patient may have had another small coronary embolic event that was enough to cause her stress test to be abnormal but now she has no evidence of coronary thrombus or coronary atherosclerosis. Physical Exam Vital Signs Vital Signs - First Documented 01/12/22 23:10 Temp 36.4 Pulse 49 Resp 16 B/P (MAP) 128/64 (85) Pulse Ox 95 O2 Delivery Room Air Capillary Refill : Height, Weight, BMI Height: '" Weight: lbs. oz. kg; 17.00 BMI Method: General Appearance: No Apparent Distress, WD/WN, Thin Neck: Full Range of Motion, Normal Inspection, Non Tender, Supple; No Carotid Bruit, No JVD Respiratory: Chest Non Tender, Normal Breath Sounds, No Accessory Muscle Use, No Respiratory Distress Cardiovascular: Regular Rate, Rhythm, No Edema, No JVD, No Murmur, Normal Peripheral Pulses Gastrointestinal: Normal Bowel Sounds, No Organomegaly, No Pulsatile Mass, Non Tender, Soft Extremity: Normal Capillary Refill, Normal Inspection, Normal Range of Motion, Non Tender, No Calf Tenderness, No Pedal Edema Neurologic/Psychiatric: Alert, Oriented x3, No Motor/Sensory Deficits, Normal M ood/Affect, thermometer tester II-XII Norm as Tested Skin: Normal Color, Warm/Dry; No Rash Progress/Results/Core Measures Results/Orders Lab Results Laboratory Tests Test 01/12/22 23:15 Range/Units White Blood Count 6.7 4.3-11.0 10^3/uL Red Blood Count 4.12 3.80-5.11 10^6/uL Hemoglobin 12.9 11.5-16.0 g/dL Hematocrit 39 35-52 % Mean Corpuscular Volume 95 80-99 fL Mean Corpuscular Hemoglobin 31 25-34 pg Mean Corpuscular Hemoglobin Concent 33 32-36 g/dL Red Cell Distribution Width 14.0 10.0-14.5 % Platelet Count 208 130-400 10^3/uL Mean Platelet Volume 8.8 L 9.0-12.2 fL Immature Granulocyte % (Auto) 0 % Neutrophils (%) (Auto) 56 42-75 % Lymphocytes (%) (Auto) 30 12-44 % Monocytes (%) (Auto) 11 0-12 % Eosinophils (%) (Auto) 3 0-10 % Basophils (%) (Auto) 1 0-10 % Neutrophils # (Auto) 3.7 1.8-7.8 10^3/uL Lymphocytes # (Auto) 2.0 1.0-4.0 10^3/uL Monocytes # (Auto) 0.7 0.0-1.0 10^3/uL Eosinophils # (Auto) 0.2 0.0-0.3 10^3/uL Basophils # (Auto) 0.1 0.0-0.1 10^3/uL Immature Granulocyte # (Auto) 0.0 0.0-0.1 10^3/uL My Orders Orders - JULIÁN HARPER DO Cbc With Automated Diff (01/12/22 23:12) Magnesium (01/12/22 23:12) Chest 1 View, Ap/Pa Only (01/12/22 23:12) Ekg Tracing (01/12/22 23:12) Comprehensive Metabolic Panel (01/12/22 23:12) Myoglobin Serum (01/12/22 23:12) Protime With Inr (01/12/22 23:12) Partial Thromboplastin Time (01/12/22 23:12) O2 (01/12/22 23:12) Monitor-Rhythm Ecg Trace Only (01/12/22 23:12) Ed Iv/Invasive Line Start (01/12/22 23:12) Creatine Kinase (01/12/22 23:12) Creatine Kinase Mb (01/12/22 23:12) Lipase (01/12/22 23:12) Amylase (01/12/22 23:12) Bnp [place] (01/12/22 23:12) Troponin I [place] (01/12/22 23:12) Aspirin Chewable Tablet (Baby Aspirin Ch (01/12/22 23:15) Ekg Tracing (01/12/22 23:12) Medications Given in ED Current Medications Medications Dose Ordered Sig/Melanie Route Start Time Stop Time Status Last Admin Dose Admin Aspirin 324 mg ONCE ONCE PO 01/12/22 23:15 01/12/22 23:16 DC 01/12/22 23:25 324 MG Vital Signs/I&O 01/12/22 01/12/22 23:10 23:15 Temp 36.4 Pulse 49 Resp 16 B/P (MAP) 128/64 (85) Pulse Ox 95 95 O2 Delivery Room Air Room Air Progress Progress Note : Progress Note GIVEN ASPIRIN NTG HELD PT IS NOT CURRENTLY HAVING ANY PAIN PT STATES HER HEART RATE IS ALWAYS LOW--USUALLY AROUND 50 Initial ECG Impression Date: Jan 12, 2022 Initial ECG Impression Time: 23:15 Initial ECG Rate: 46 Initial ECG Rhythm: S.Rah Initial ECG Impression: Nonspecific Changes (T WAVE INVERSION/ST DEPRESSION ANTERIOR/LATERALLY) Initial ECG Comparisson: No Previous ECG Available Diagnostic Imaging Comments CXR-- Reviewed: Reviewed by Me Departure Departure-Patient Inst. Referrals: LUCY MORRISON MD (PCP/Family) Primary Care Physician JULIÁN HARPER DO Jan 12, 2022 23:14
[2022-01-12] MEDS ORDERED: ASPIRIN 81 MG CHEW (CHILDREN'S ASA) PO ONE (23:15)
[2022-01-12 23:21] LABS: BASOPHILS # (AUTO) 0.1 10^3/uL (0.0-0.1); BASOPHILS % (AUTO) 1 % (0-10); EOSINOPHILS # (AUTO) 0.2 10^3/uL (0.0-0.3); EOSINOPHILS % (AUTO) 3 % (0-10); HEMATOCRIT 39 % (35-52); HEMOGLOBIN 12.9 g/dL (11.5-16.0); LYMPHOCYTES % (AUTO) 30 % (12-44); MEAN CORPUSCULAR HEMOGLOBIN 31 pg (25-34); MEAN CORPUSCULAR HGB CONC 33 g/dL (32-36); MEAN CORPUSCULAR VOLUME 95 fL (80-99); MEAN PLATELET VOLUME 8.8 fL (9.0-12.2); MONOCYTES # (AUTO) 0.7 10^3/uL (0.0-1.0); MONOCYTES % (AUTO) 11 % (0-12); NEUTROPHILS # (AUTO) 3.7 10^3/uL (1.8-7.8); NEUTROPHILS % (AUTO) 56 % (42-75); PLATELET COUNT 208 10^3/uL (130-400); WHITE BLOOD COUNT 6.7 10^3/uL (4.3-11.0)
[2022-01-12 23:33] LABS: INR 1.1 (0.8-1.4); PROTHROMBIN TIME PATIENT 14.6 SEC (12.2-14.7)
[2022-01-12 23:40] LABS: ALBUMIN 3.9 GM/DL (3.2-4.5); BILIRUBIN,TOTAL 0.4 MG/DL (0.1-1.0); CALCIUM 9.4 MG/DL (8.5-10.1); CREATININE SERUM 0.8 MG/DL (0.60-1.30); MAGNESIUM 2.3 MG/DL (1.6-2.4); POTASSIUM 4.3 MMOL/L (3.6-5.0); TOTAL PROTEIN 7.6 GM/DL (6.4-8.2)
[2022-01-12 23:47] LABS: CREATINE KINASE MB 1.6 NG/ML (<6.6)
[2022-01-13] VITALS (11 sets, daily range): BP systolic 93–139; BP diastolic 43–78
[2022-01-13] MEDS ORDERED: ONDANSETRON 4 MG/2 ML (SDV) Z0FRAN IVP PRN (01:45)
[2022-01-13] MEDS ORDERED: NITROGLYCERIN 0.4 MG SL TABS BTL 25'S SL PRN (01:45)
[2022-01-13] MEDS ORDERED: fentaNYL INJ 100 MCG/2 ML AMP IV PRN (01:45)
--- NOTE | 2022-01-13 02:13 | Tele-ICU Consult ---
History of Present Illness History of Present Illness Date Seen by Provider: Jan 13, 2022 Time Seen by Provider: 02:07 Date of Admission 86 yo F came to ED for left chest pain, now improved, no accompanying SOB N, V D, no calf pain or swelling. Hx of chronic a fib and taking Eliquis and Sotolol Hx of previous CT in 1999 Went to [facility], pt says was normal PMH HTN, CMP, EKG shows sinus bradycardia Troponin, BNP normal Allergies and Home Medications Allergies Coded Allergies: amiodarone (Verified Allergy, Unknown, 11/08/21) cefadroxil (Verified Allergy, Unknown, 11/08/21) clindamycin (Verified Allergy, Unknown, 10/09/20) diphenhydramine (Verified Allergy, Unknown, 11/08/21) meperidine (Verified Allergy, Unknown, 11/08/21) morphine (Verified Allergy, Unknown, 11/08/21) Home Medications Apixaban 2.5 Mg Tablet, 2.5 MG PO 0700,1900, (Reported) Nitroglycerin 0.4 Mg Tab.subl, 0.4 MG SL UD PRN for CHEST PAIN, (Reported) Pediatric Multivit No.203/Iron 18 Mg Iron Tab.chew, 18 MG PO DAILY, (Reported) Sotalol HCl 80 Mg Tablet, 80 MG PO 0600,1800, (Reported) [Bone Support] , 1 CAP PO BID, (Reported) Past Medical/Social/Family Hx Patient Social History Tobacco Use?: No Smoking Status: Never a Smoker Use of E-Cig and/or Vaping dev: No Substance use?: No Alcohol Use?: No Pt stated abuse/neglect: No Immunizations Up To Date Tetanus Booster (TDap): Unknown Hepatitis A: No Hepatitis B: No TB Skin Test: None Current Status status: No status: No Advance Directives: Yes Advance Directive Location: Home Communicates: Verbally Primary Language: Polish Preferred Spoken Language: Polish Is interpretation needed?: No Sensory deficits: Vision impairment Implanted or Applied Medical D: None Family Medical History Family Hx: -CARDIAC CATH 11/08/[address] HIGGINS: IMPRESSION: 1. Mildly elevated left ventricular end-diastolic pressure. 2. Angiographically normal-appearing coronary arteries and a right dominant system. 3. The patient is known to have normal left ventricular systolic function with a calculated ejection fraction of 80% by nuclear stress test that was performed on 07/26/2021. 3. I would question whether or not the patient may have had another small coronary embolic event that was enough to cause her stress test to be abnormal but now she has no evidence of coronary thrombus or coronary atherosclerosis. Review of Systems Constitutional: see HPI EENTM: see HPI Respiratory: see HPI Cardiovascular: see HPI Gastrointestinal: see HPI Genitourinary: see HPI Musculoskeletal: see HPI Skin: see HPI Psychiatric/Neurological: See HPI Focused Exam Height, Weight, BMI Height: '" Weight: lbs. oz. kg; 18.78 BMI Method: Exam Exam Patient acknowledged, consented, and participated in this virtual visit which was conducted using real time audio/video Vital Signs Date Time Temp Pulse Resp B/P (MAP) Pulse Ox O2 Delivery O2 Flow Rate FiO2 01/13/22 01:30 Room Air 01/13/22 01:30 36.2 46 18 114/59 (77) 95 Room Air 01/13/22 00:40 36.6 50 14 99/80 96 Room Air 01/12/22 23:15 95 Room Air 01/12/22 23:10 36.4 49 16 128/64 (85) 95 Room Air Height & Weight Height: '" Weight: lbs. oz. kg; 18.78 BMI Method: General Appearance: No Apparent Distress, WD/WN, Thin Neck: Full Range of Motion, Normal Inspection, Non Tender, Supple; No Carotid Bruit, No JVD Respiratory: Chest Non Tender, Normal Breath Sounds, No Accessory Muscle Use, No Respiratory Distress Cardiovascular: Regular Rate, Rhythm, No Edema, No Gallop, No JVD, No Murmur, Normal Peripheral Pulses Capillary Refill: Less Than 3 Seconds Extremity: Normal Capillary Refill, Normal Inspection, Normal Range of Motion, Non Tender, No Calf Tenderness, No Pedal Edema Neurologic/Psychiatric: Alert, Oriented x3, No Motor/Sensory Deficits, Normal Mood/Affect, 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
[2022-01-13 04:14] LABS: BASOPHILS % (AUTO) 1 % (0-10); EOSINOPHILS # (AUTO) 0.1 10^3/uL (0.0-0.3); EOSINOPHILS % (AUTO) 3 % (0-10); HEMATOCRIT 38 % (35-52); HEMOGLOBIN 12.3 g/dL (11.5-16.0); LYMPHOCYTES # (AUTO) 1.8 10^3/uL (1.0-4.0); LYMPHOCYTES % (AUTO) 35 % (12-44); MEAN CORPUSCULAR HEMOGLOBIN 31 pg (25-34); MEAN CORPUSCULAR HGB CONC 33 g/dL (32-36); MEAN CORPUSCULAR VOLUME 95 fL (80-99); MEAN PLATELET VOLUME 9.1 fL (9.0-12.2); MONOCYTES # (AUTO) 0.5 10^3/uL (0.0-1.0); MONOCYTES % (AUTO) 9 % (0-12); NEUTROPHILS # (AUTO) 2.6 10^3/uL (1.8-7.8); NEUTROPHILS % (AUTO) 52 % (42-75); PLATELET COUNT 189 10^3/uL (130-400)
[2022-01-13 04:41] LABS: ALBUMIN 3.7 GM/DL (3.2-4.5); BILIRUBIN,TOTAL 0.4 MG/DL (0.1-1.0); CALCIUM 9.4 MG/DL (8.5-10.1); CREATININE SERUM 0.77 MG/DL (0.60-1.30); MAGNESIUM 2.2 MG/DL (1.6-2.4); PHOSPHORUS 4.3 MG/DL (2.3-4.7); POTASSIUM 4.2 MMOL/L (3.6-5.0); TOTAL PROTEIN 7.1 GM/DL (6.4-8.2)
[2022-01-13] MEDS ORDERED: CATHETER FLUSH 10 ML SYR IVP SCH (06:00)
--- NOTE | 2022-01-13 06:33 | Diagnostic Imaging Report ---
EXAMINATION: Chest 1 view HISTORY: Chest pain COMPARISON: 07/26/2021 FINDINGS: Heart size and pulmonary vasculature are normal. Mild interstitial opacities within the lungs. No focal consolidation, pleural effusion, or pneumothorax. Chronic right rib deformities. IMPRESSION: 1. Mild coarse diffuse interstitial opacities which may represent background chronic lung disease although superimposed edema or infection within the differential. Dictated by: Dictated on workstation # [id number]
--- NOTE | 2022-01-13 08:12 | Tele-ICU Progress Note ---
Progress Note video rounds completd 86 y/o female admitted with CP HAd prior cath CARDIAC CATH 11/08/[address] HIGGINS: IMPRESSION: 1. Mildly elevated left ventricular end-diastolic pressure. 2. Angiographically normal-appearing coronary arteries and a right dominant system. 3. The patient is known to have normal left ventricular systolic function with a calculated ejection fraction of 80% by nuclear stress test that was performed on 07/26/2021 Tropinins negative PE: resting comfortably in bed HR 46 with T wave inversions on monitor awaiting cardiology Focused Exam Height, Weight, BMI Height: '" Weight: lbs. oz. kg; 18.78 BMI Method: Labs Laboratory Tests 01/12/22 23:15 01/13/22 03:46 Results Results/Procedures Labs Laboratory Tests 01/12/22 23:15 01/13/22 03:46 Patient resulted labs reviewed. Results Labs Labs Laboratory Tests 01/12/22 23:15: White Blood Count 6.7, Red Blood Count 4.12, Hemoglobin 12.9, Hematocrit 39, Mean Corpuscular Volume 95, Mean Corpuscular Hemoglobin 31, Mean Corpuscular Hemoglobin Concent 33, Red Cell Distribution Width 14.0, Platelet Count 208, Mean Platelet Volume 8.8L, Immature Granulocyte % (Auto) 0, Neutrophils (%) (Auto) 56, Lymphocytes (%) (Auto) 30, Monocytes (%) (Auto) 11, Eosinophils (%) (Auto) 3, Basophils (%) (Auto) 1, Neutrophils # (Auto) 3.7, Lymphocytes # (Auto) 2.0, Monocytes # (Auto) 0.7, Eosinophils # (Auto) 0.2, Basophils # (Auto) 0.1, Immature Granulocyte # (Auto) 0.0, Prothrombin Time 14.6, INR Comment 1.1, Activated Partial Thromboplast Time 31, Sodium Level 140, Potassium Level 4.3, Chloride Level 104, Carbon Dioxide Level 25, Anion Gap 11, Blood Urea Nitrogen 23H, Creatinine 0.80, Estimat Glomerular Filtration Rate 72, BUN/Creatinine Ratio 29, Glucose Level 92, Calcium Level 9.4, Corrected Calcium 9.5, Magnesium Level 2.3, Total Bilirubin 0.4, Aspartate Amino Transf (AST/SGOT) 21, Alanine Aminotransferase (ALT/SGPT) 15, Alkaline Phosphatase 61, Total Creatine Kinase 67, Creatine Kinase MB 1.6, Myoglobin 31.9, Troponin I < 0.028, B-Type Natriuretic Peptide 295.1H, Total Protein 7.6, Albumin 3.9, Amylase Level 40, Lipase 22 01/13/22 03:46: White Blood Count 5.0, Red Blood Count 3.96, Hemoglobin 12.3, Hematocrit 38, Mean Corpuscular Volume 95, Mean Corpuscular Hemoglobin 31, Mean Corpuscular Hemoglobin Concent 33, Red Cell Distribution Width 14.0, Platelet Count 189, M gail Platelet Volume 9.1, Immature Granulocyte % (Auto) 0, Neutrophils (%) (Auto) 52, Lymphocytes (%) (Auto) 35, Monocytes (%) (Auto) 9, Eosinophils (%) (Auto) 3, Basophils (%) (Auto) 1, Neutrophils # (Auto) 2.6, Lymphocytes # (Auto) 1.8, Monocytes # (Auto) 0.5, Eosinophils # (Auto) 0.1, Basophils # (Auto) 0.0, Immature Granulocyte # (Auto) 0.0, Sodium Level 143, Potassium Level 4.2, Chloride Level 107, Carbon Dioxide Level 25, Anion Gap 11, Blood Urea Nitrogen 19H, Creatinine 0.77, Estimat Glomerular Filtration Rate 76, BUN/Creatinine Ratio 25, Glucose Level 89, Calcium Level 9.4, Corrected Calcium 9.6, Magnesium Level 2.2, Total Bilirubin 0.4, Aspartate Amino Transf (AST/SGOT) 18, Alanine Aminotransferase (ALT/SGPT) 14, Alkaline Phosphatase 55, Troponin I < 0.028, Tot al Protein 7.1, Albumin 3.7, Phosphorus Level 4.3, Triglycerides Level 44, Cholesterol Level 138, LDL Cholesterol Direct 93, VLDL Cholesterol 9, HDL Cholesterol 49 01/13/22 06:33: Troponin I < 0.028 ADAN JASSO MD Jan 13, 2022 08:12
[2022-01-13] MEDS ORDERED: ASPIRIN E.C. 81 MG (ECOTRIN) TAB PO SCH (09:00)
--- NOTE | 2022-01-13 11:24 | Discharge Inst-Simple/Standard ---
Discharge Inst-Standard Reconcile Patient Problems Problems Reviewed?: Yes Discharge Medications New, Converted or Re-Newed RX: RX on Chart Patient Instructions/Follow Up Plan of Care/Instructions/FU: Appointment with Dr. Moran next week Activity as Tolerated: Yes Discharge Diet: Cardiac Diet BERTRAM PASTOR MD Jan 13, 2022 11:24
--- NOTE | 2022-01-13 11:29 | Short Stay Summary ---
History of Present Illness History of Present Illness Reason for visit/HPI 86-year-old lady with history of paroxysmal atrial fibrillation, coronary artery disease. Was in her usual state of health until yesterday, she went out and walked for about a mile. After returning home she had some chest pain described as dull achiness on the left side of her chest responded to sublingual nitroglycerin. Later on she had another episode of chest pain, she took nitroglycerin and came to the emergency room. Since her admission she has been feeling better. No further episodes of chest pain. She denied any shortness of breath, palpitation, dizziness, syncope or near syncopal episodes Date of Admission Jan 13, 2022 at 00:20 Date of Discharge January 13, 2022 Time Seen by Provider: 11:26 Attending Physician Reyna Hernandez MD Admitting Physician Admitting Physician: Bertram Vail MD Attending Physician: eBrtram Vail MD Consult Allergies and Home Medications Allergies Coded Allergies: amiodarone (Verified Allergy, Unknown, 11/08/21) cefadroxil (Verified Allergy, Unknown, 11/08/21) clindamycin (Verified Allergy, Unknown, 10/09/20) diphenhydramine (Verified Allergy, Unknown, 11/08/21) meperidine (Verified Allergy, Unknown, 11/08/21) morphine (Verified Allergy, Unknown, 11/08/21) Patient Home Medication List Home Medication List Reviewed: Yes Apixaban (Eliquis) 2.5 Mg Tablet, 2.5 MG PO 0700,1900, (Reported) Entered as Reported by: ALETHEA ARMANDO on 11/08/21918 Last Action: Last Taken Edited Nitroglycerin (Nitroglycerin) 0.4 Mg Tab.subl, 0.4 MG SL UD PRN for CHEST PAIN, (Reported) Entered as Reported by: ALETHEA ARMANDO on 11/08/21918 Last Action: Last Taken Edited Pediatric Multivit No.203/Iron (Flintstones with Iron Tab Chew) 18 Mg Iron Tab.chew, 18 MG PO DAILY, (Reported) Entered as Reported by: ALETHEA ARMANDO on 11/08/21918 Last Action: Last Taken Edited Sotalol HCl (Sotalol) 80 Mg Tablet, 80 MG PO 0600,1800, (Reported) Entered as Reported by: ALETHEA ARMANDO on 11/08/21918 Last Action: Last Taken Edited [Bone Support] , 1 CAP PO BID, (Reported) Entered as Reported by: ALETHEA ARMANDO on 11/08/21918 Last Action: Last Taken Edited Discontinued Medications Spironolactone (Spironolactone) 25 Mg Tablet, 12.5 MG PO DAILY, (Reported) Discontinued Reason: No Longer Taking Entered as Reported by: ALETHEA ARMANDO on 11/08/21918 Last Action: Discontinued Past [id number] Hx Patient Social History Marrital Status: Employed/Student: retired Smoking Status: Never a Smoker 2nd Hand Smoke Exposure: No Recent Hopitalizations: Yes Have you traveled recently?: No Alcohol Use?: No Pt feels they are or have been: No Seasonal Allergies Seasonal Allergies: Yes Surgeries Yes (PROLAPSED UTERUS; CARDIAC CATH 11/08/21-NORMAL: CATARACTS) Adenoidectomy, Cardiac, Eye Surgery, Hysterectomy, Tonsillectomy, Tubal Ligation Respiratory Yes (HX OF TB) Cardiovascular Yes Atrial Fibrillation, Cardiomyopathy, Coronary Artery Disease, Heart Attack, Hypertension Neurological No Reproductive System NEURODIAGNOSTIC TECH History: Menopausal Genitourinary No Gastrointestinal No Musculoskeletal Yes Fractures Endocrine History of Endocrine Disorders: No HEENT History of HEENT Disorders: Yes HEENT Disorders: Cataract Loss of Vision: Denies Hearing Impairment: Denies Cancer Yes Uterine Did You Recieve Any Treatments: Yes Type of Treatment: Surgical Intervention Psychosocial History of Psychiatric Problem: No Integumentary History of Skin or Integumenta: No Blood Transfusions History of Blood Disorders: No Family Medical History Other Significan Family Hx: -CARDIAC CATH 11/08/[address] MORAN: IMPRESSION: 1. Mildly elevated left ventricular end-diastolic pressure. 2. Angiographically normal-appearing coronary arteries and a right dominant system. 3. The patient is known to have normal left ventricular systolic function with a calculated ejection fraction of 80% by nuclear stress test that was performed on 07/26/2021. 3. I would question whether or not the patient may have had another small coronary embolic event that was enough to cause her stress test to be abnormal but now she has no evidence of coronary thrombus or coronary atherosclerosis. Review of Systems Constitutional: see HPI EENTM: see HPI Respiratory: see HPI Cardiovascular: see HPI, chest pain; No edema, No Hx of Intervention, No palpitations, No syncope, No vascular heart diseas, No other Gastrointestinal: see HPI Genitourinary: see HPI Musculoskeletal: see HPI Skin: see HPI Psychiatric/Neurological: No Symptoms Reported, See HPI Physical Exam Vital Signs Vital Signs - First Documented 01/12/22 23:10 Temp 36.4 Pulse 49 Resp 16 B/P (MAP) 128/64 (85) Pulse Ox 95 O2 Delivery Room Air Capillary Refill : Less Than 3 Seconds Height, Weight, BMI Height: '" Weight: lbs. oz. kg; 18.78 BMI Method: General Appearance: No Apparent Distress, WD/WN Eyes: Bilateral Eye Normal Inspection, Bilateral Eye PERRL, Bilateral Eye EOMI HEENT: PERRL/EOMI, TMs Normal, Normal ENT Inspection, Pharynx Normal Neck: Full Range of Motion, Normal Inspection, Non Tender, Supple, Carotid Br uit Respiratory: Chest Non Tender, Lungs Clear, Normal Breath Sounds, No Accessory Muscle Use, No Respiratory Distress Cardiovascular: Regular Rate, Rhythm, No Edema, No Gallop, No JVD, Normal Peripheral Pulses, Systolic Murmur Gastrointestinal: Normal Bowel Sounds, No Organomegaly, No Pulsatile Mass, Non Tender, Soft Back: Normal Inspection, No CVA Tenderness, No Vertebral Tenderness Extremity: Normal Capillary Refill, Normal Inspection, Normal Range of Motion, Non Tender, No Calf Tenderness, No Pedal Edema Neurologic/Psychiatric: Alert, Oriented x3, No Motor/Sensory Deficits, Normal Mood/Affect Skin: Normal Color, Warm/Dry Lymphatic: No Adenopathy Clinical Quality Measures Admission Status Admission Status: Observation AMI/AHF: ASA po Prior to arrival: No Short Stay Diagnosis Discharge Diagnosis-Short Stay Admission Diagnosis: Chest pain Coronary artery disease Paroxysmal atrial fibrillation Sinus bradycardia Final Discharge Diagnosis: Chest pain Coronary artery disease Paroxysmal atrial fibrillation Sinus bradycardia Conclusion Labs Laboratory Tests 01/12/22 23:15: White Blood Count 6.7, Red Blood Count 4.12, Hemoglobin 12.9, Hematocrit 39, Mean Corpuscular Volume 95, Mean Corpuscular Hemoglobin 31, Mean Corpuscular Hemoglobin Concent 33, Red Cell Distribution Width 14.0, Platelet Count 208, Mean Platelet Volume 8.8L, Immature Granulocyte % (Auto) 0, Neutrophils (%) (Auto) 56, Lymphocytes (%) (Auto) 30, Monocytes (%) (Auto) 11, Eosinophils (%) (Auto) 3, Basophils (%) (Auto) 1, Neutrophils # (Auto) 3.7, Lymphocytes # (Auto) 2.0, Monocytes # (Auto) 0.7, Eosinophils # (Auto) 0.2, Basophils # (Auto) 0.1, Immature Granulocyte # (Auto) 0.0, Prothrombin Time 14.6, INR Comment 1.1, Activated Partial Thromboplast Time 31, Sodium Level 140, Potassium Level 4.3, Chloride Level 104, Carbon Dioxide Level 25, Anion Gap 11, Blood Urea Nitrogen 23H, Creatinine 0.80, Estimat Glomerular Filtration Rate 72, BUN/Creatinine Ratio 29, Glucose Level 92, Calcium Level 9.4, Corrected Calcium 9.5, Magnesium Level 2.3, Total Bilirubin 0.4, Aspartate Amino Transf (AST/SGOT) 21, Alanine Aminotransferase (ALT/SGPT) 15, Alkaline Phosphatase 61, Total Creatine Kinase 67, Creatine Kinase MB 1.6, Myoglobin 31.9, Troponin I < 0.028, B-Type Natriuretic Peptide 295.1H, Total Protein 7.6, Albumin 3.9, Amylase Level 40, Lipase 22 01/13/22 03:46: White Blood Count 5.0, Red Blood Count 3.96, Hemoglobin 12.3, Hematocrit 38, Mean Corpuscular Volume 95, Mean Corpuscular Hemoglobin 31, Mean Corpuscular Hemoglobin Concent 33, Red Cell Distribution Width 14.0, Platelet Count 189, Mean Platelet Volume 9.1, Immature Granulocyte % (Auto) 0, Neutrophils (%) (Auto) 52, Lymphocytes (%) (Auto) 35, Monocytes (%) (Auto) 9, Eosinophils (%) (Auto) 3, Basophils (%) (Auto) 1, Neutrophils # (Auto) 2.6, Lymphocytes # (Auto) 1.8, Monocytes # (Auto) 0.5, Eosinophils # (Auto) 0.1, Basophils # (Auto) 0.0, Immature Granulocyte # (Auto) 0.0, Sodium Level 143, Potassium Level 4.2, Chloride Level 107, Carbon Dioxide Level 25, Anion Gap 11, Blood Urea Nitrogen 19H, Creatinine 0.77, Estimat Glomerular Filtration Rate 76, BUN/Creatinine Ratio 25, Glucose Level 89, Calcium Level 9.4, Corrected Calcium 9.6, Magnesium Level 2.2, Total Bilirubin 0.4, Aspartate Amino Transf (AST/SGOT) 18, Alanine Aminotransferase (ALT/SGPT) 14, Alkaline Phosphatase 55, Troponin I < 0.028, Total Protein 7.1, Albumin 3.7, Phosphorus Level 4.3, Triglycerides Level 44, Cholesterol Level 138, LDL Cholesterol Direct 93, VLDL Cholesterol 9, HDL Cholesterol 49 01/13/22 06:33: Troponin I < 0.028 Conclusion/Plan Chest pain nonspecific etiology, responsive to nitroglycerin. Patient is known to have mild coronary artery disease nonobstructive disease, h ad a cardiac catheterization done by Dr. Moran in October 2021. EKG showed T wave inversion in the anterolateral leads. Cardiac enzymes has been negative. No acute ischemic changes. Discussed with the patient the management plan, I am planning to discharge her on arrange for follow-up as an outpatient with Dr. Moran Paroxysmal atrial fibrillation, maintained in sinus rhythm, taking sotalol and Eliquis. I instructed her to continue on current medication Sinus bradycardia, probably secondary to sotalol 80 mg twice daily. She is asymptomatic and able to do her daily exercise. I instructed her to continue on sotalol 80 mg twice daily and continue to monitor as an outpatient. BERTRAM VIAL MD Jan 13, 2022 11:29
== END 2022-01-13 13:15 | disposition home or self-care (01) ==
LOC: EDUNIT# 23:06 → ER 23:09 → ICU 01-13 00:20
PROVIDERS: ADMIT Internal Medicine Cardiovascular Disease; ATTEND Internal Medicine Cardiovascular Disease
DX: I25.10 Atherosclerotic heart disease of native coronary artery without angina pectoris (principal); I48.0 Paroxysmal atrial fibrillation
CPT/HCPCS: 36415; 71045; 80053; 80061; 82150; 82550; 82553; 83690; 83735; 83874; 83880; 84100; 84484; 85025; 85610; 85730; 93005; 93041; G0378